=== PATIENT | female | born 1960 | race Caucasian/White ===

== ENCOUNTER → 2016-06-30 | Outpatient (REF) | payer BC ==
[~2016-06-30] MED LIST: ADVI200T PO; MULTTAB4 PO; PAXI20TA OR; PAXI30TA OR; PAXI40TA OR; PROZ20CA11 PO; PROZ40CA PO; TRAM50TA2 OR; TRAZ50TA2 PO; TYLENOL PM PO; [UNRECOGNIZED DRUG - OTHER]; dexilant PO
[2016-06-30 18:29] LABS: VITAMIN B12 LEVEL 254 PG/ML (247-911)
== END ==
LOC: M LAB REF 16:36
PROVIDERS: ATTEND Internal Medicine
DX: Z01.89 Encounter for other specified special examinations (principal); D51.9 Vitamin B12 deficiency anemia, unspecified

== ENCOUNTER → 2016-10-21 | Outpatient (CLI) | payer BC ==
[~2016-10-21] VITALS: Ht 172.7 cm; Wt 90.7 kg
[~2016-10-21] MED LIST changes: +DEXI60CA PO; +FLUO20CA8 PO; +IBUPOTC PO; +LIDOCAINE 2% INJ 100 MG/5 ML SDV (FOR ANES.) As Ordered ONE; +MULT1TAB9 PO; +NS 1,000 ML IV SCH; +PROPOFOL 200 MG/20 ML VIAL As Ordered ONE
--- NOTE | 2016-10-21 08:37 | ROOR ---
Patient Name: Jerri Denise Procedure Date: 10/21/2016 8:00 AM Date of : 1960 Age: 56 Room: [facility] Gender: Female Note Status: Finalized Procedure: Upper GI endoscopy Indications: Suspected esophageal reflux Providers: Andrew Soriano Jr, MD Referring MD: PRIMO MARTINEZ JR, MD Requesting Provider: Medicines: Propofol per Anesthesia Complications: No immediate complications. Procedure: Pre-Anesthesia Assessment: - Prior to the procedure, a History and Physical was performed, and patient medications and allergies were reviewed. The patient is competent. The risks and benefits of the procedure and the sedation options and risks were discussed with the patient. All questions were answered and informed consent was obtained. Patient identification and proposed procedure were verified by the physician and the nurse in the pre-procedure area and in the procedure room. Mental Status Examination: alert and oriented. Airway Examination: normal oropharyngeal airway and neck mobility. Respiratory Examination: clear to auscultation. CV Examination: normal. ASA Grade Assessment: II - A patient with mild systemic disease. After reviewing the risks and benefits, the patient was deemed in satisfactory condition to undergo the procedure. The anesthesia plan was to use moderate sedation / analgesia (conscious sedation). Immediately prior to administration of medications, the patient was re-assessed for adequacy to receive sedatives. The heart rate, respiratory rate, oxygen saturations, blood pressure, adequacy of pulmonary ventilation, and response to care were monitored throughout the procedure. The physical status of the patient was re-assessed after the procedure. The Endoscope was introduced through the mouth, and advanced to the second part of duodenum. The upper GI endoscopy was accomplished without difficulty. The patient tolerated the procedure well. Findings: The upper third of the esophagus, middle third of the esophagus and lower third of the esophagus were normal. A small hiatal hernia was present. The cardia, gastric fundus, gastric body, greater curvature of the stomach and lesser curvature of the stomach were normal. Striped mildly erythematous mucosa without bleeding was found in the gastric antrum. Biopsies were taken with a cold forceps for histology. The duodenal bulb, first portion of the duodenum and second portion of the duodenum were normal. Impression: - Normal upper third of esophagus, middle third of esophagus and lower third of esophagus. - Small hiatal hernia. - Normal cardia, gastric fundus, gastric body, greater curvature of the stomach and lesser curvature of the stomach. - Erythematous mucosa in the antrum. Biopsied. - Normal duodenal bulb, first portion of the duodenum and second portion of the duodenum. Recommendation: - Discharge patient to home (ambulatory). - Return to my office in 3 weeks. Andrew Soriano MD Andrew Soriano Jr, MD 10/21/2016 8:37:37 AM This report has been signed electronically. Number of Addenda: 0 Note Initiated On: 10/21/2016 8:00 AM Estimated Blood Loss: Estimated blood loss: none.
--- NOTE | 2016-10-21 08:41 | ROOR ---
Patient Name: Jerri Denise Procedure Date: 10/21/2016 8:00 AM Date of : 1960 Age: 56 Room: [facility] Gender: Female Note Status: Finalized Procedure: Colonoscopy Indications: Screening for colorectal malignant neoplasm Providers: Andrew Soriano Jr, MD Referring MD: PRIMO MARTINEZ JR, MD Requesting Provider: Medicines: Propofol per Anesthesia Complications: No immediate complications. Procedure: Pre-Anesthesia Assessment: - Prior to the procedure, a History and Physical was performed, and patient medications and allergies were reviewed. The patient is competent. The risks and benefits of the procedure and the sedation options and risks were discussed with the patient. All questions were answered and informed consent was obtained. Patient identification and proposed procedure were verified by the physician and the nurse in the pre-procedure area and in the procedure room. Mental Status Examination: alert and oriented. Airway Examination: normal oropharyngeal airway and neck mobility. Respiratory Examination: clear to auscultation. CV Examination: normal. ASA Grade Assessment: II - A patient with mild systemic disease. After reviewing the risks and benefits, the patient was deemed in satisfactory condition to undergo the procedure. The anesthesia plan was to use moderate sedation / analgesia (conscious sedation). Immediately prior to administration of medications, the patient was re-assessed for adequacy to receive sedatives. The heart rate, respiratory rate, oxygen saturations, blood pressure, adequacy of pulmonary ventilation, and response to care were monitored throughout the procedure. The physical status of the patient was re-assessed after the procedure. The Colonoscope was introduced through the anus and advanced to the cecum, identified by appendiceal orifice and ileocecal valve. The colonoscopy was performed without difficulty. The patient tolerated the procedure well. The quality of the bowel preparation was adequate and good. Findings: The perianal and digital rectal examinations were normal. Pertinent negatives include normal sphincter tone, no palpable rectal lesions and no anal lesion or abnormality was detected. A small polyp was found in the transverse colon. The polyp was sessile. The polyp was removed with a hot snare. Resection and retrieval were complete. A diminutive polyp was found in the recto-sigmoid colon transverse colon. The polyp was sessile. Coagulation for tissue destruction using hot biopsy forceps was successful. The rectum, sigmoid colon, descending colon, ascending colon, cecum, appendiceal orifice and ileocecal valve appeared normal. Impression: - One small polyp in the transverse colon, removed with a hot snare. Resected and retrieved. - One diminutive polyp at the recto-sigmoid colon in the transverse colon. Treated with hot biopsy forceps. - The rectum, sigmoid colon, descending colon, ascending colon, cecum, appendiceal orifice and ileocecal valve are normal. Recommendation: - Discharge patient to home (ambulatory). - Repeat colonoscopy in 5-10 years for surveillance based on pathology results. Andrew Soriano MD Andrew Soriano Jr, MD 10/21/2016 8:40:55 AM This report has been signed electronically. Number of Addenda: 0 Note Initiated On: 10/21/2016 8:00 AM Estimated Blood Loss: Estimated blood loss: none.
[2016-10-21 08:55] VITALS: BP 116/74
== END | disposition home or self-care (01) ==
LOC: M OPP 07:18
PROVIDERS: ATTEND Surgery
DX: Z12.11 Encounter for screening for malignant neoplasm of colon (principal); D12.3 Benign neoplasm of transverse colon; D12.7 Benign neoplasm of rectosigmoid junction; K31.89 Other diseases of stomach and duodenum; K21.9 Gastro-esophageal reflux disease without esophagitis; F41.9 Anxiety disorder, unspecified; Z78.0 Asymptomatic menopausal state; F17.210 Nicotine dependence, cigarettes, uncomplicated; Z79.899 Other long term (current) drug therapy

== ENCOUNTER → 2018-02-07 | Outpatient (CLI) | payer BC | LOC: M WHC 14:49 | DX: Z12.31 Encounter for screening mammogram for malignant neoplasm of breast (principal); Z78.0 Asymptomatic menopausal state; Z80.41 Family history of malignant neoplasm of ovary | CPT/HCPCS: 77067 ==

== ENCOUNTER → 2018-02-07 | Outpatient (REF) | payer BC ==
[2018-02-09 14:16] LABS: HPV HYBRID CAPTURE II Negative (Negative)
== END ==
LOC: M SFHCWAGY 15:27
DX: Z12.4 Encounter for screening for malignant neoplasm of cervix (principal)
CPT/HCPCS: G0123

== ENCOUNTER → 2018-02-07 | Outpatient (REF) | payer BC | LOC: M SFHCWAGY 16:58 | DX: R31.29 Other microscopic hematuria (principal) | CPT/HCPCS: 87086 ==

== ENCOUNTER 2019-02-06 07:22 | Emergency (ER) | payer BC ==
[~2019-02-06] VITALS: Ht 172.7 cm; Wt 99.1 kg
[~2019-02-06 07:22] MED LIST changes: -DEXI60CA PO; +DEXI60CA2 PO; +FLUO20CA20 PO; -FLUO20CA8 PO; -LIDOCAINE 2% INJ 100 MG/5 ML SDV (FOR ANES.) As Ordered ONE; -NS 1,000 ML IV SCH; -PROPOFOL 200 MG/20 ML VIAL As Ordered ONE
[2019-02-06] MEDS ORDERED: SULF1TAB93 (07:33)
[2019-02-06] MEDS ORDERED: AMLO5TAB6 (07:33)
[2019-02-06 08:19] LABS: AMORPHOUS SEDIMENT SMALL (NEGATIVE); APPEARANCE, URINE CLOUDY (CLEAR); BACTERIA, URINE AUTO 1+ (NEGATIVE); BILIRUBIN, URINE AUTO NEGATIVE (NEGATIVE); BLOOD, URINE BLOOD NEGATIVE (NEGATIVE); COLOR, URINE YELLOW (YELLOW); GLUCOSE, URINE (UA) AUTO NEGATIVE (NEGATIVE); KETONE, URINE AUTO NEGATIVE (NEGATIVE); LEUKOCYTE ESTERASE, URINE AUTO TRACE (NEGATIVE); MUCUS, URINE SMALL (NEGATIVE); NITRITE, URINE AUTO NEGATIVE (NEGATIVE); PROTEIN, URINE AUTO NEGATIVE (NEGATIVE); RBC, URINE AUTO 3 /HPF (0-3); SPECIFIC GRAVITY URINE AUTO 1.017 (1.002-1.035); SQUAMOUS EPITHELIAL CELL UR AU 12 /HPF (0-6); UROBILINOGEN, URINE AUTO 0.2 mg/dL (0.0-2.0); WBC, URINE AUTO 8 /HPF (0-3)
--- NOTE | 2019-02-06 09:00 | REP ---
Lumbar spine series: Five views. History: L4-5 radicular pain radiating down both legs. Findings: There is a minimal levoconvex lumbar curvature. Lumbar vertebral body heights are preserved. Alignment is otherwise normal. There is mild disc space narrowing at L4-5. There is mild disc space narrowing and spurring at L3-4. There is osteoarthritic facet hypertrophy and sclerosis bilaterally at L5-S1 and to a lesser extent, at L4-5. Sacrum SI joints are intact. Psoas margins are symmetric. No bony destructive lesion is seen. Impression: Degenerative disc disease at L3-4 L4-5. Osteoarthritic facet disease at the L4-5 and L5-S1. Mild levoconvex curvature. No acute abnormality. Electronically Signed by Titi Grajeda MD 02/06/2019 07:28 P
[2019-02-06 09:09] VITALS: BP 122/81
== END 2019-02-06 09:15 | disposition home or self-care (01) ==
LOC: M ED 07:22
DX: M51.17 Intervertebral disc disorders with radiculopathy, lumbosacral region (principal); I10 Essential (primary) hypertension; M81.0 Age-related osteoporosis without current pathological fracture; F41.9 Anxiety disorder, unspecified; F17.210 Nicotine dependence, cigarettes, uncomplicated

== ENCOUNTER → 2019-07-12 | Outpatient (CLI) | payer BC ==
[~2019-07-12] MED LIST changes: +AMLO5TAB6; +SULF1TAB93
== END ==
LOC: M PLALAB 12:18
PROVIDERS: ATTEND Nurse Practitioner Family
DX: Z13.79 Encounter for other screening for genetic and chromosomal anomalies (principal)

== ENCOUNTER → 2019-07-12 | Outpatient (CLI) | payer BC ==
--- NOTE | 2019-07-12 14:24 | REPMRS ---
Patient History The patient states she had a clinical breast exam in June 2019.Family history of ovarian cancer at age 48 in mother. Benign stereotatic breast biopsy of the right breast, 2004. No Hormone Replacement Therapy Digital Woman Screen Mammo: July 12, 2019 - Exam #: [id number] Bilateral CC and MLO view(s) were taken. Technologist: Natividad Romero, Technologist Prior study comparison: February 07, 2018, bilateral digital woman screen mammo performed at [facility]. September 04, 2015, digital woman screen mammo performed at [facility]. November 07, 2013, digital woman screen mammo performed at [facility]. FINDINGS: The breast tissue is almost entirely fat. There has been no change in the appearance of the mammogram from the prior studies. There is no interval development of dominant mass, architectural distortion, or grouped microcalcification typical of malignancy. 3-D tomosynthesis shows no additional findings. Assessment: BI-RADS/ACR category 1 mammogram. Negative Mammogram. Recommendation Routine screening mammogram of both breasts in 1 year (for women over age 40). This patient's Lifetime Breast Cancer RIsk is estimated at 8.1 %. This mammogram was interpreted with the aid of an FDA-approved computer-aided dectection system. Electronically Signed By: Bradford Grajeda MD 07/12/19 [id number]
== END ==
LOC: M WHC 11:00
PROVIDERS: ATTEND Nurse Practitioner Family
DX: Z12.31 Encounter for screening mammogram for malignant neoplasm of breast (principal); Z80.41 Family history of malignant neoplasm of ovary

== ENCOUNTER → 2019-07-19 | Outpatient (REF) | payer BC | LOC: M LAB REF 16:29 | PROVIDERS: ATTEND Nurse Practitioner Adult Health | DX: L03.116 Cellulitis of left lower limb (principal) ==

== ENCOUNTER → 2019-07-19 | Outpatient (CLI) | payer BC ==
--- NOTE | 2019-07-19 11:50 | REP ---
Duplex extremity venous ultrasound: Left lower extremity. History: Left leg pain and swelling. Rule out DVT. Findings: The deep veins are anechoic and fully compressible from the groin to the popliteal fossa in the left lower extremity. Color flow imaging is homogeneous. Spectral Doppler interrogation demonstrates intact respiratory variation in flow and normal manual augmentation of flow. There is no evidence of deep vein thrombosis. Impression: Negative left lower extremity duplex venous ultrasound. No evidence of deep vein thrombosis. Electronically Signed by Titi Grajeda MD 07/19/2019 11:42 A
== END ==
LOC: M RAD 10:50
PROVIDERS: ATTEND Nurse Practitioner Adult Health
DX: R22.42 Localized swelling, mass and lump, left lower limb (principal); M79.605 Pain in left leg

== ENCOUNTER → 2019-08-28 | Outpatient (POV) | payer BC ==
[~2019-08-28] VITALS: Ht 172.7 cm; Wt 90.9 kg
[2019-08-28 15:05] VITALS: BP 146/97
--- NOTE | 2019-08-31 09:45 | IRCOV ---
[facility] IR Consult Office Visit IR Consult Office Visit DATE: Aug 28, 2019 REASON FOR CONSULTATION/CHIEF COMPLAINT: Varicose veins. HISTORY OF PRESENT ILLNESS: 59-year-old female complaining of left leg pain for several years associated with dry itchy skin, spider veins, bulging veins and skin discoloration. She has tried moisturizers, cortisone creams and antibiotic treatment without relief. No prior venous ulcers. She's never had her veins treated. She does wear compression stockings. She is on her feet all day. No prior deep vein thrombosis. ALLERGIES: Please see below. HOME MEDICATIONS: Please see below. PAST MEDICAL HISTORY: Recurrent UTIs Anxiety PAST SURGICAL HISTORY: Eye surgery Breast biopsy Fractured hand Tubal ligation Left foot surgery FAMILY HISTORY: Noncontributory SOCIAL HISTORY: Smokes a pack a day. Occasional alcohol. No drugs. REVIEW OF SYSTEMS: Otherwise negative PHYSICAL EXAMINATION: VITAL SIGNS: Please see below. GENERAL APPEARANCE: Appears well. Comfortable at rest. HEENT: No scleral icterus. RESPIRATORY: Normal breathing at rest. CARDIOVASCULAR: Normal rate. ABDOMEN: Non-distended. EXTREMITIES: Left lower extremity: Varicose eczema. Hemosiderin deposition on uribe. Spider veins visible. Bulging veins visible. Mild edema. Warm to touch. DP/PT + popliteal + no ulcers. Right lower extremity: Spider veins visible. No bulging veins visible. No significant edema. Warm to touch DP/PT + popliteal +. NEUROLOGICAL: Alert and oriented. PSYCHIATRIC: Appropriate to circumstance. LABORATORY DATA: No recent labs Imaging: I personally reviewed the deep vein study from June 2019. No left lower extremity deep vein thrombosis. The superficial system was not examined. ASSESSMENT/PLAN: 59-year-old female with classic symptoms and signs of left lower extremity venous hypertension. I've ordered a eft lower extremity venous reflux study to assess for varicose veins and eligibility for treatment. Will follow up with the patient once ultrasound is done. I spent 30 minutes in consultation with the patient. Thank you for this referral. Dr. Carson Keller Allergies Coded Allergies: No Known Allergies (Verified , 12/31/02) Home Medications Scheduled (Multivitamin Adults 50+), 1 TAB PO DAILYPRN, (Reported) Dexlansoprazole (Dexilant), 60 MG PO DAILY, (Reported) Fluoxetine Hcl (Fluoxetine HCl), 20 MG PO DAILY, (Reported) Ibuprofen (Ibuprofen), 600 MG PO BID, (Reported) Miscellaneous Medications Amlodipine Besylate (Amlodipine Besylate), (Reported) Sulfamethoxazole/Trimethoprim (Sulfamethoxazole-Tmp Ds Tablet), (Reported) VS, I&O, 24H, Fishbone Vital Signs/I&O Vital Signs Date Time Temp Pulse Resp B/P (MAP) Pulse Ox O2 Delivery O2 Flow Rate FiO2 08/28/19 15:05 97.9 92 18 146/97 (113) 96 Room Air ITA HUNTLEY MD Aug 31, 2019 09:46
== END ==
LOC: M IRPOV 14:54
PROVIDERS: ATTEND Radiology Diagnostic Radiology
DX: M79.605 Pain in left leg (principal); F17.210 Nicotine dependence, cigarettes, uncomplicated; Z79.899 Other long term (current) drug therapy; Z87.440 Personal history of urinary (tract) infections

== ENCOUNTER → 2019-09-04 | Outpatient (CLI) | payer BC ==
--- NOTE | 2019-09-05 08:28 | REP ---
Clinical: Lower extremity varicosities. Technique: Real time javier scale and color Doppler evaluation of the left lower extremity using linear high frequency transducer. Findings: The deep venous system to the left lower extremity including common femoral vein, superficial femoral vein, and popliteal vein appear normal and without evidence for reflux. There is significant continuous reflux through the greater saphenous vein along with dilated collateral varicosities extending from the proximal greater saphenous vein. Specifically, proximal greater saphenous vein measures 9 mm diameter with reflux duration 4.4 seconds, mid greater saphenous vein measures 8.0 mm diameter with reflux duration 3.9 seconds, and distal greater saphenous vein measures 6.0 mm diameter with reflux duration 4.6 seconds. Impression: Enlarged collateral perforating vessels from the greater saphenous vein along with continuous reflux through the superficial system noted. Electronically Signed by Wilder Castro MD 09/05/2019 08:19 A
== END ==
LOC: M RAD 13:14
PROVIDERS: ATTEND Radiology Diagnostic Radiology
DX: I83.92 Asymptomatic varicose veins of left lower extremity (principal)

== ENCOUNTER → 2020-07-17 | Outpatient (CLI) | payer BC ==
[~2020-07-17] MED LIST changes: +AMLO1TAB24; -AMLO5TAB6; +LIDOCAINE 1% MDV 20ML VIAL As Ordered ONE; +LIDOCAINE 2% MDV 20ML VIAL As Ordered ONE; +MIDAZOLAM INJ 2MG/2ML VIAL (J2250 PER 1MG) As Ordered ONE; +PROMETHAZINE INJ 25 MG/ML VIAL (J2550) As Ordered ONE; +diphenhydrAMINE 50MG/ML VIAL (J1200) As Ordered ONE; +fentaNYL 100 MCG/2 ML INJECTION (J3010) As Ordered ONE
[2020-07-17 08:13] LABS: HEMATOCRIT 42.5 % (36.0-47.0); HEMOGLOBIN 14.6 g/dl (12.0-15.5); MEAN CORPUSCULAR HEMOGLOBIN 30.9 pg (27.0-33.0); MEAN CORPUSCULAR HGB CONC 34.4 g/dl (32.0-36.5); PLATELET COUNT, AUTOMATED 379 10^3/uL (150-450); RED BLOOD COUNT 4.72 10^6/uL (4.00-5.40)
--- NOTE | 2020-07-17 08:30 | IRMSE ---
[facility] IR Moderate Sedation Eval. Date and Time Date: Jul 17, 2020 Time: 08:29 ASA Classification ASA Classification: III-Severe systemic dis. Mallampati Score: II NPO: Yes Obstructive Sleep Apnea: No Interval Plan: moderate sedation ITA HUNTLEY MD Jul 17, 2020 08:30
[2020-07-17 11:40] VITALS: BP 134/80
--- NOTE | 2020-07-21 13:06 | POST-OPPD ---
Postoperative Procedure Note Date Of Procedure: Jul 17, 2020 Time Of Procedure: 16:00 IR Endovenous laser treatment for left leg varicose vein. IR Ultrasound of the left leg. IR Tumescent anesthesia under ultrasound guidance. IR Moderate sedation. Clinical information: Chronic left leg pain, swelling and varicose veins. LLE venous HTN, incompetent left GSV with greater than 0.5 seconds reflux. Physician: Dr. Neff. Procedure: The patient was advised of the benefits, risks and alternatives of the procedure and informed consent was obtained. The time-out was performed with verification of the patient's name, MRN, site of procedure and type of procedure to be performed. The patient was positioned in the supine position on the table. The site was prepped and draped in the usual sterile fashion. Moderate sedation was performed by the physician including the presence of an independent trained RN who assisted in monitoring the patient's level of consciousness and physiologic status. Following the administration of fentanyl and Versed , the physician spent 60 minutes of continuous face to face time with the patient. Ultrasound of the left lower extremity demonstrates dilated left greater saphenous vein with greater than 0.5 seconds reflux. The access site was identified with ultrasound and anesthetized with lidocaine. The left GSV was accessed under ultrasound guidance at the proximal calf, using a micro introducer needle. An 018 cope wire was advanced into the vein. Incision at the access site was made using a scalpel. The needle was removed and an access catheter was advanced over the wire under ultrasound guidance to > 2.5 centimeters from the saphenofemoral junction. The wire was removed and the laser fiber was advanced through the catheter under ultrasound guidance and positioned with the tip located 2.5 cm from the saphenous femoral junction. Tumescent anesthesia was then injected under ultrasound guidance along the entire length of the vein to be treated. Repeat ultrasound of the saphenofemoral junction was used to confirm positioning of the tip of the laser back 2.5 cm from junction. The patient was positioned in Trendelenburg. The laser was then activated and under ultrasound guidance used to laser the left GSV back to the access point. Simultaneous manual compression was applied to the treated vein. Treatment: Wattage: 7. Time: 181 seconds. Pullback rate 1 cm every 7 seconds. Total Energy deposited 1268 joules. Treatment 50 joules per centimeter of vein. The fiber, catheter and sheath were removed, pressure held and hemostasis achieved. A sterile dressing was applied to the site. Compression dressing was then applied to the leg, from ankle to groin. The patient tolerated the procedure well and was returned to the PRU in stable condition. EBL: < 5 ml. Complications: None. Impression: 1. Ultrasound demonstrates dilated left greater saphenous vein with greater than 0.5 seconds reflux. 2. Successful left GSV ablation with laser. 3. Compression dressing applied from ankle to groin. Patient to return in 1 week for follow up ultrasound at which time the compression dressing will be switched to stockings. Thank you this referral. cc ITA Camarena MD Jul 21, 2020 13:06
== END ==
LOC: M IRPRO 07:35
PROVIDERS: ATTEND Radiology Diagnostic Radiology
DX: I83.812 Varicose veins of left lower extremity with pain (principal); I87.392 Chronic venous hypertension (idiopathic) with other complications of left lower extremity; F17.210 Nicotine dependence, cigarettes, uncomplicated
CPT/HCPCS: 36478; 76940; 85027; 99152; 99153; J1200; J2250; J3010

== ENCOUNTER → 2020-07-24 | Outpatient (CLI) | payer BC ==
[~2020-07-24] MED LIST changes: -LIDOCAINE 1% MDV 20ML VIAL As Ordered ONE; -LIDOCAINE 2% MDV 20ML VIAL As Ordered ONE; -MIDAZOLAM INJ 2MG/2ML VIAL (J2250 PER 1MG) As Ordered ONE; -PROMETHAZINE INJ 25 MG/ML VIAL (J2550) As Ordered ONE; -diphenhydrAMINE 50MG/ML VIAL (J1200) As Ordered ONE; -fentaNYL 100 MCG/2 ML INJECTION (J3010) As Ordered ONE
--- NOTE | 2020-07-24 20:12 | REP ---
INDICATION: POST EVLT, R/O DVT COMPARISON: None. TECHNIQUE: Cabrales scale and color Doppler evaluation left lower extremity using linear high frequency transducer. FINDINGS: Ultrasound examination of the left lower extremity deep venous structures from the common femoral vein to the popliteal vein demonstrates normal compressibility flow and wave patterns in response to respiration and augmentation. There is no evidence for deep venous thrombosis. Patient is noted to be status post ablation with occlusion of the greater saphenous vein originating 1.9 cm from the junction with the common femoral vein. IMPRESSION: No evidence for deep venous thrombosis. <Electronically signed by Wilder Castro > 07/24/202008
== END ==
LOC: M RAD 15:17
PROVIDERS: ATTEND Radiology Diagnostic Radiology
DX: I83.90 Asymptomatic varicose veins of unspecified lower extremity (principal); Z98.890 Other specified postprocedural states

== ENCOUNTER → 2020-08-19 | Outpatient (POV) | payer BC ==
--- NOTE | 2020-08-21 10:31 | IRPN ---
[facility] IR Progress Note IR Progress Note DATE: Aug 19, 2020 Patient agreed to this telephone follow-up. I spent 10 minutes reviewing patient's imaging and talking to the patient. FOLLOW-UP: Status post left lower extremity EVLT for bulging varicose veins, swelling and pain. Patient states she no longer gets cramps in her leg. She still has the sores on the foot. Imaging: I personally reviewed the post EVLT follow-up ultrasound. Appropriately treated thrombosed saphenous vein. No deep vein thrombosis. IMPRESSION: Doing well status post left lower extremity EVLT. Patient is encouraged to wear thigh-high compression and prescription is given. No further follow-up scheduled unless initiated by patient and or referring provider. Thank you for this referral. Dr. Carson Keller Allergies Coded Allergies: No Known Allergies (Verified , 12/31/02) ITA HUNTLEY MD Aug 21, 2020 10:31
== END ==
LOC: M TMIRPOV 08:13
PROVIDERS: ATTEND Radiology Diagnostic Radiology
DX: Z48.812 Encounter for surgical aftercare following surgery on the circulatory system (principal); L98.8 Other specified disorders of the skin and subcutaneous tissue

== ENCOUNTER → 2021-03-17 | Outpatient (REF) | payer BC ==
[~2021-03-17] MED LIST changes: +BACTDSTA; -SULF1TAB93
== END ==
LOC: M LAB REF 15:53
PROVIDERS: ATTEND Nurse Practitioner Adult Health
DX: Z00.01 Encounter for general adult medical examination with abnormal findings (principal); R30.0 Dysuria

== ENCOUNTER → 2021-03-18 | Outpatient (REF) | payer BC | LOC: M SFHCWAGY 13:12 | PROVIDERS: ATTEND Nurse Practitioner Women's Health | DX: Z12.4 Encounter for screening for malignant neoplasm of cervix (principal) | CPT/HCPCS: 87624; G0123 ==

== ENCOUNTER → 2021-03-18 | Outpatient (CLI) | payer BC ==
--- NOTE | 2021-03-18 09:52 | REPMRS ---
Patient History The patient states she had a clinical breast exam in 2020. Family history of ovarian cancer at age 48 in mother. Benign stereotatic breast biopsy of the right breast, 2004. No Hormone Replacement Therapy No breast complaints today Patient signed the MRS sheet 1st covid vaccine 06/30/20-left arm-Pfizer 2nd covid vaccine 07/21/20-left arm Patient states she has had a 8lb weight loss in the last year Priors on PACS Patient Identification Verified Digital Woman Screen Mammo: March 18, 2021 - Exam #: [id number] Bilateral CC and MLO view(s) were taken. Technologist: Debbie Beltran, Technologist Prior study comparison: July 12, 2019, bilateral digital woman screen mammo performed at [facility] [place]. February 07, 2018, bilateral digital woman screen mammo performed at [facility] [place]. FINDINGS: The breast tissue is almost entirely fat. Screening. Digital screening (2D) mammography was performed bilaterally in the CC and MLO projections. Additionally, breast tomosynthesis (3D mammography) was performed bilaterally in the CC and MLO projections. Todays exam was compared to the prior exam/exams. By history, the patient has no complaints of a palpable breast abnormality or other significant breast complaints. The breasts are unchanged in size and shape. There are no aravind-soft tissue densities or spiculated masses. There is no internal architectural distortion. There are no suspicious aravind-calcific clusters. Skin thickening or nipple retraction is not present. The Volpara volumetric breast density category is A, the breasts are almost entirely fatty. IMPRESSION: BI-RADS Category 2- Benign Findings. There is no evidence of malignant alteration of the breasts. Followup examination recommended in one year. This mammogram was read with the assistance of [employer],an FDA approved computer aided detection system for mammography. The lifetime Tyrer-Cuzick score is 7.8% Negative x-ray reports should not delay surgical consultation if a dominant or clinically suspicious mass is present. Not all breast cancers can be identified by mammography. Therefore, we recommend that you continue to perform regular breast self-examination and physical examination and then promptly contact your physician of any concerns or changes. Adenosis and dense breasts may obscure an underlying neoplasm. No significant changes when compared with prior studies. Assessment: BI-RADS/ACR category 2 mammogram. Benign Findings. Recommendation Routine screening mammogram of both breasts in 1 year. Electronically Signed By: Jay Horowitz MD 03/18/21 [id number]
== END ==
LOC: M WHC 07:46
PROVIDERS: ATTEND Nurse Practitioner Women's Health
DX: Z12.31 Encounter for screening mammogram for malignant neoplasm of breast (principal)

== ENCOUNTER → 2021-10-06 | Outpatient (REF) | payer BC ==
[~2021-10-06] MED LIST changes: +FLUO-96 PO; -FLUO20CA20 PO
== END ==
LOC: M LAB REF 16:35
PROVIDERS: ATTEND Nurse Practitioner Adult Health
DX: B35.1 Tinea unguium (principal)

== ENCOUNTER → 2022-02-24 | Outpatient (REF) ==
[2022-02-24 09:52] LABS: RSV AMPLIFICATION NEGATIVE (NEGATIVE)
== END ==
LOC: M EMP 08:20
PROVIDERS: ATTEND Family Medicine
DX: Z20.822 Contact with and (suspected) exposure to COVID-19 (principal)

== ENCOUNTER → 2022-04-27 | Outpatient (REF) | payer BC ==
[2022-04-27 17:52] LABS: BACTERIA, URINE LARGE AMOUNT; MUCUS, URINE MOD AMOUNT (NEGATIVE); RBC, URINE 0-1 /hpf (0-3); SQUAMOUS EPITHELIAL CELL URINE MOD AMOUNT /hpf (SMALL AMT)
[2022-04-27 17:54] LABS: URIC ACID CRYSTALS, URINE MOD AMOUNT /hpf
== END ==
LOC: M LAB REF 14:18
PROVIDERS: ATTEND Nurse Practitioner Adult Health
DX: R20.2 Paresthesia of skin (principal); N39.0 Urinary tract infection, site not specified

== ENCOUNTER → 2022-06-18 | Outpatient (CLI) | payer BC | LOC: M EKG 09:39 | PROVIDERS: ATTEND Nurse Practitioner Adult Health | DX: R00.2 Palpitations (principal) ==

== ENCOUNTER → 2022-08-04 | Outpatient (REF) ==
[2022-08-04 11:44] LABS: RSV AMPLIFICATION NEGATIVE (NEGATIVE)
== END ==
LOC: M EMP 08:38
PROVIDERS: ATTEND Family Medicine
DX: Z11.59 Encounter for screening for other viral diseases (principal)

== ENCOUNTER → 2022-11-25 | Outpatient (REF) | payer BC ==
[2022-11-25 12:29] LABS: APPEARANCE, URINE TURBID (CLEAR); BACTERIA, URINE AUTO NEGATIVE (NEGATIVE); BILIRUBIN, URINE AUTO NEGATIVE (NEGATIVE); BLOOD, URINE BLOOD 2+ (NEGATIVE); COLOR, URINE AMBER (YELLOW); GLUCOSE, URINE (UA) AUTO NEGATIVE (NEGATIVE); KETONE, URINE AUTO NEGATIVE (NEGATIVE); LEUKOCYTE ESTERASE, URINE AUTO 1+ (NEGATIVE); MUCUS, URINE SMALL (NEGATIVE); NITRITE, URINE AUTO NEGATIVE (NEGATIVE); PROTEIN, URINE AUTO NEGATIVE (NEGATIVE); RBC, URINE AUTO 1 /HPF (0-3); SPECIFIC GRAVITY URINE AUTO 1.017 (1.002-1.035); SQUAMOUS EPITHELIAL CELL UR AU 5 /HPF (0-6); UROBILINOGEN, URINE AUTO 0.2 mg/dL (0.0-2.0); WBC, URINE AUTO 3 /HPF (0-3)
== END ==
LOC: M LAB REF 11:59
PROVIDERS: ATTEND Nurse Practitioner Adult Health
DX: R31.9 Hematuria, unspecified (principal)

== ENCOUNTER → 2023-03-10 | Outpatient (REF) | LOC: M EMP 08:05 | PROVIDERS: ATTEND Family Medicine | DX: Z11.52 Encounter for screening for COVID-19 (principal) ==

== ENCOUNTER → 2023-03-15 | Outpatient (REF) | payer BC | LOC: M LAB REF 16:58 | PROVIDERS: ATTEND Nurse Practitioner Family | DX: N20.9 Urinary calculus, unspecified (principal) ==

== ENCOUNTER → 2023-04-29 | Outpatient (REF) | LOC: M EMP 13:24 | PROVIDERS: ATTEND Family Medicine | DX: Z11.52 Encounter for screening for COVID-19 (principal) ==

== ENCOUNTER → 2023-05-31 | Outpatient (REF) | payer BC ==
[2023-05-31 12:46] LABS: APPEARANCE, URINE CLEAR (CLEAR); BACTERIA, URINE AUTO NEGATIVE (NEGATIVE); BILIRUBIN, URINE AUTO NEGATIVE (NEGATIVE); BLOOD, URINE BLOOD 2+ (NEGATIVE); COLOR, URINE YELLOW (YELLOW); GLUCOSE, URINE (UA) AUTO NEGATIVE (NEGATIVE); KETONE, URINE AUTO NEGATIVE (NEGATIVE); LEUKOCYTE ESTERASE, URINE AUTO NEGATIVE (NEGATIVE); MUCUS, URINE SMALL (NEGATIVE); NITRITE, URINE AUTO NEGATIVE (NEGATIVE); PROTEIN, URINE AUTO NEGATIVE (NEGATIVE); RBC, URINE AUTO 1 /HPF (0-3); SPECIFIC GRAVITY URINE AUTO 1.018 (1.002-1.035); SQUAMOUS EPITHELIAL CELL UR AU 3 /HPF (0-6); UROBILINOGEN, URINE AUTO 0.2 mg/dL (0.0-2.0); WBC, URINE AUTO 1 /HPF (0-3)
== END ==
LOC: M SMT 10:02
PROVIDERS: ATTEND Nurse Practitioner Family
DX: R31.29 Other microscopic hematuria (principal)

== ENCOUNTER → 2023-10-12 | Outpatient (REF) | LOC: M EMP 08:28 | PROVIDERS: ATTEND Family Medicine | DX: Z11.52 Encounter for screening for COVID-19 (principal) ==

== ENCOUNTER → 2023-10-12 | Outpatient (REF) | LOC: M EMP 09:06 | PROVIDERS: ATTEND Family Medicine | DX: Z11.52 Encounter for screening for COVID-19 (principal) ==

== ENCOUNTER 2023-10-31 09:30 | Emergency (ER) | payer OTHER, BC ==
[~2023-10-31] VITALS: Ht 172.7 cm; Wt 79.0 kg
[2023-10-31] MEDS ORDERED: OLME5TAB24 (09:54)
[2023-10-31] MEDS: LIDOCAINE 2% MDV 20ML VIAL SC ONE (11:28)
[2023-10-31] MEDS: BACITRACIN OINTMENT 30GM TUBE TOP STA (12:08)
[2023-10-31] MEDS: BOOSTRIX VACCINE (TETANUS/DIPHTH/ACEL. PERTUSSIS) 0.5ML SYR IM ONE (12:11)
[2023-10-31 12:41] VITALS: BP 150/80; TEMP 96.8; O2SAT 96
== END 2023-10-31 12:44 | disposition home or self-care (01) ==
LOC: M ED 09:30
DX: S61.511A Laceration without foreign body of right wrist, initial encounter (principal); W26.0XXA Contact with knife, initial encounter; I10 Essential (primary) hypertension; Y92.238 Other place in hospital as the place of occurrence of the external cause; Y93.89 Activity, other specified; Y99.0 Civilian activity done for income or pay; Z79.899 Other long term (current) drug therapy; Z79.84 Long term (current) use of oral hypoglycemic drugs; Z79.2 Long term (current) use of antibiotics

== ENCOUNTER → 2023-12-14 | Outpatient (REF) | payer BC ==
[~2023-12-14] MED LIST changes: +OLME5TAB24
[2023-12-16 12:50] LABS: HPV APTIMA Not Detected (Not Detected)
== END ==
LOC: M SFHCWAGY 17:30
PROVIDERS: ATTEND Nurse Practitioner Family
DX: Z12.4 Encounter for screening for malignant neoplasm of cervix (principal)

== ENCOUNTER → 2023-12-14 | Outpatient (CLI) | payer BC | LOC: M WHC 15:36 | PROVIDERS: ATTEND Nurse Practitioner Family | DX: Z13.820 Encounter for screening for osteoporosis (principal); M85.851 Other specified disorders of bone density and structure, right thigh; M85.852 Other specified disorders of bone density and structure, left thigh ==

== ENCOUNTER → 2023-12-14 | Outpatient (CLI) | payer BC | LOC: M WHC 15:35 | PROVIDERS: ATTEND Nurse Practitioner Family | DX: Z12.31 Encounter for screening mammogram for malignant neoplasm of breast (principal) ==

== ENCOUNTER → 2024-03-15 | Outpatient (REF) | LOC: M EMP 08:23 | PROVIDERS: ATTEND Family Medicine | DX: Z11.52 Encounter for screening for COVID-19 (principal) ==

== ENCOUNTER → 2024-04-05 | Outpatient (CLI) | payer BC ==
[2024-04-05 16:46] LABS: ALBUMIN 3.5 G/DL (3.2-5.2); ALKALINE PHOSPHATASE 77 U/L (46-116); ALT/SGPT 23 U/L (7.0-40); AST/SGOT 18 U/L (<34); BILIRUBIN,DIRECT 0.1 MG/DL (<0.4); BILIRUBIN,TOTAL 0.5 MG/DL (0.3-1.2); BLOOD UREA NITROGEN 20 MG/DL (9-23); CALCIUM LEVEL 9.4 MG/DL (8.3-10.6); CARBON DIOXIDE LEVEL 22 MMOL/L (20-31); CHLORIDE LEVEL 108 MMOL/L (98-107); CREATININE FOR GFR 0.59 MG/DL (0.55-1.30); GLOMERULAR FILTRATION RATE > 60.0 (>45); GLUCOSE, FASTING 101 MG/DL (74-106); PHOSPHORUS LEVEL 4.6 MG/DL (2.4-5.1); POTASSIUM SERUM 3.8 MMOL/L (3.5-5.1); SODIUM LEVEL 138 MMOL/L (136-145); TOTAL PROTEIN 6.4 G/DL (5.7-8.2)
== END ==
LOC: M LAB 15:39
PROVIDERS: ATTEND Podiatrist Foot & Ankle Surgery
DX: B35.1 Tinea unguium (principal)

== ENCOUNTER → 2024-06-01 | Outpatient (CLI) | payer BC | LOC: M RAD 15:42 | PROVIDERS: ATTEND Nurse Practitioner Family | DX: Z12.2 Encounter for screening for malignant neoplasm of respiratory organs (principal); F17.210 Nicotine dependence, cigarettes, uncomplicated; R91.8 Other nonspecific abnormal finding of lung field ==

== ENCOUNTER → 2024-08-15 | Outpatient (REF) | LOC: M EMP 08:14 | PROVIDERS: ATTEND Family Medicine | DX: Z01.89 Encounter for other specified special examinations (principal) ==

== ENCOUNTER → 2025-01-01 | Outpatient (REF) | payer BC | LOC: M LAB REF 13:40 | PROVIDERS: ATTEND Nurse Practitioner Family | DX: R30.0 Dysuria (principal) ==

== ENCOUNTER → 2025-03-13 | Outpatient (REF) ==
[2025-03-13 08:16] LABS: SOFIA COVID ANTIGEN NEGATIVE (NEGATIVE)
== END ==
LOC: M EMP 07:49
PROVIDERS: ATTEND Family Medicine
DX: Z01.89 Encounter for other specified special examinations (principal)

== ENCOUNTER → 2025-03-13 | Outpatient (REF) | LOC: M EMP 07:46 | PROVIDERS: ATTEND Family Medicine | DX: Z01.89 Encounter for other specified special examinations (principal) ==

== ENCOUNTER → 2025-06-17 | Outpatient (CLI) | payer BC ==
[~2025-06-17] MED LIST changes: -BACTDSTA; +PROHANCE 279.3MG/ML 15ML VIAL As Ordered ONE; +SULF-8
== END ==
LOC: M RAD 13:11
PROVIDERS: ATTEND Physician Assistant Medical
DX: H90.3 Sensorineural hearing loss, bilateral (principal)
CPT/HCPCS: 70553; A9579